=== PATIENT | male | born 1940 | race Caucasian/White ===

== ENCOUNTER 2016-10-18 17:04 | Inpatient (IN) | payer OTHER, MEDICARE ==
[~2016-10-18] VITALS: Ht 177.8 cm; Wt 106.1 kg
[~2016-10-18 17:04] MED LIST: ASPIRIN EC325 MG PO; ASPIRIN325 MG PO; CIPRO500 MG PO; DOXAZOSIN MESYLA8 MG PO; GABAPENTIN300 MG PO; GLIMEPIRIDE1 MG PO; GRALISE300 MG PO; LOSARTAN POTAS100 MG PO; MOTRIN600 MG PO; PERCOCET 5/31 TABLET PO; PRAVACHOL20 MG PO; VITAMIN D250000 UNIT PO; ZOFRAN4 MG PO
[2016-10-18 17:59] LABS: CHLORIDE 107 mEq/L (99-109); POTASSIUM 4.3 mEq/L (3.7-5.4); SODIUM 138 mEq/L (136-147)
[2016-10-18 18:02] LABS: ANION GAP 10 MEQ/L (2-14)
[2016-10-18 18:05] LABS: GFR ESTIMATE (CALCULATED) 57 mL/min/; UREA NITROGEN (BUN) 22 mg/dL (9-23)
[2016-10-18 18:08] LABS: MCHC 29.5 G/DL (30.0-36.0); MCV 84.8 FL (86-99); MEAN PLAT.VOLUME 10.8 uM^3 (9.0-12.4); PLATELET COUNT 256 K/uL (156-360); RBC DIS.WIDTH-CV 16.4 % (11.8-14.6); RBC DIS.WIDTH-SD 50.4 % (39-53); RED BLOOD COUNT 2.24 M/uL (4.00-5.50); WHITE BLOOD COUNT 7.1 K/uL (4.1-10.2)
[2016-10-18 18:17] LABS: GLUCOSE 222 mg/dL (70-99)
[2016-10-18] MEDS ORDERED: GLIMEPIRIDE1 MG PO (19:44)
[2016-10-18] MEDS ORDERED: LOW DOSE ASPIRI81 M1 PO (19:45)
[2016-10-18 20:06] VITALS: BP 160/91
[2016-10-18 20:22] VITALS: BP 158/96
[2016-10-18 21:17] VITALS: BP 131/72
[2016-10-18 22:17] VITALS: BP 149/88
[2016-10-18 22:33] VITALS: BP 172/87
[2016-10-18 23:17] VITALS: BP 138/70
[2016-10-19] VITALS (11 sets, daily range): BP systolic 119–172; BP diastolic 58–87
[2016-10-19 08:33] LABS: HEMATOCRIT 23.1 % (38.0-50.0); MCV 82.8 FL (86-99)
[2016-10-19 08:55] LABS: INTER. NORMALIZED RATIO 1.1; PROTHROMBIN TIME 11.3 (9.2-11.2); PTT 27.3 (25-32)
[2016-10-19 08:59] LABS: ANION GAP 11 MEQ/L (2-14); CHLORIDE 103 MEQ/L (99-109); GFR ESTIMATE (CALCULATED) > 59 mL/min/; POTASSIUM 4.1 MEQ/L (3.7-5.4); SAMPLE HEMOLYSIS CHECK 0; SAMPLE ICTERIC CHECK 0; SAMPLE LIPEMIA CHECK 0; SODIUM 139 MEQ/L (136-147); UREA NITROGEN (BUN) 20 mg/dL (9-23)
[2016-10-19 09:00] LABS: GLUCOSE 82 mg/dL (70-99)
[2016-10-19 12:04] LABS: POINT-OF-CARE METER ID UU14174225
[2016-10-19 14:23] LABS: POINT-OF-CARE METER ID UU13113694
[2016-10-19 15:26] LABS: POINT-OF-CARE METER ID UU13113819
[2016-10-19 16:25] LABS: HEMATOCRIT 23.9 % (38.0-50.0); MCV 82.7 FL (86-99)
[2016-10-20] VITALS (7 sets, daily range): BP systolic 100–127; BP diastolic 56–72
[2016-10-20 07:25] LABS: HEMATOCRIT 25.9 % (38.0-50.0); MCH 25.5 PG (29.0-34.0); MCHC 30.5 G/DL (30.0-36.0); MCV 83.5 FL (86-99); PLATELET COUNT 223 K/uL (156-360); RBC DIS.WIDTH-CV 16.7 % (11.8-14.6); RBC DIS.WIDTH-SD 50.1 % (39-53)
[2016-10-20 07:37] LABS: WHITE BLOOD COUNT 10.8 K/uL (4.1-10.2)
[2016-10-20 08:40] LABS: POINT-OF-CARE METER ID UU14174225
[2016-10-20] MEDS ORDERED: SLOW RELEASE I160 MG PO (08:46)
[2016-10-20 12:15] LABS: POINT-OF-CARE METER ID UU14188625
== END 2016-10-20 14:01 | disposition home or self-care (01) | DRG 378 ==
LOC: EME 17:04 → 5SOUTH 21:14 → EDOF 21:14 → 5SOUTH 22:11
PROVIDERS: Hospitalist; Internal Medicine; Internal Medicine Gastroenterology
PROC: 30233N1 Transfusion of Nonautologous Red Blood Cells into Peripheral Vein, Percutaneous Approach (ICD-10-PCS; 2016-10-18)
PROC: 0W3P8ZZ Control Bleeding in Gastrointestinal Tract, Via Natural or Artificial Opening Endoscopic (ICD-10-PCS; principal; 2016-10-19)
DX: K92.1 Melena (principal); D62 Acute posthemorrhagic anemia; K62.7 Radiation proctitis; I95.9 Hypotension, unspecified; E66.01 Morbid (severe) obesity due to excess calories; K57.30 Diverticulosis of large intestine without perforation or abscess without bleeding; Q27.33 Arteriovenous malformation of digestive system vessel; I10 Essential (primary) hypertension; E11.9 Type 2 diabetes mellitus without complications; E78.5 Hyperlipidemia, unspecified; G47.33 Obstructive sleep apnea (adult) (pediatric); M19.90 Unspecified osteoarthritis, unspecified site; K63.5 Polyp of colon; I99.9 Unspecified disorder of circulatory system; K64.8 Other hemorrhoids; Z68.33 Body mass index [BMI] 33.0-33.9, adult; Z85.46 Personal history of malignant neoplasm of prostate; Z96.619 Presence of unspecified artificial shoulder joint
CPT/HCPCS: 36415; 74177; 80048; 80053; 82948; 83540; 84466; 85014; 85018; 85025; 85027; 85610; 85730; 86900; 86901; 86920; 93005; 94660; 99281; 99285; J1756; J1815; J1940; J7050; P9016